=== PATIENT | female | born 1995 | race American Indian/Alaskan Native ===

== ENCOUNTER 2019-05-16 00:31 | Emergency (ER) | payer OTHER ==
[~2019-05-16] VITALS: Ht 167.6 cm; Wt 103.4 kg
[~2019-05-16 00:31] MED LIST: ACETAMINOPHEN325 M1 PO; KEFLEX500 MG PO; LEVAQUIN750 MG PO; NORCO 5-325 TA1 EACH PO; PEPCID20 MG PO; PERCOCET 7.5-31 EACH PO; TYLENOL WITH C1 EACH PO; VIBRAMYCIN100 MG PO; ZOFRAN ODT4 MG SL
--- OUTSIDE RECORDS SUMMARY | 2019-05-16 00:34 | XMS ---
PreManage Notification: AL BREWER Security Delicatessen Manager Events No recent Security Events currently on file CRITERIA MET - Group Notification CARE PROVIDERS There are no care providers on record at this time. Zev has no Care Guidelines for this patient. Barbi VISIT COUNT (12 MO.) 1 AKIRA Monroy TOTAL 1 NOTE: Visits indicate total known visits. ED/UCC VISIT TRACKING (12 MO.) 05/16/2019 00:32 AKIRA King [place] TYPE: Emergency COMPLAINT: - VOMITING, ABD PAIN INPATIENT VISIT TRACKING (12 MO.) No inpatient visits to display in this time frame [email or web address]
[2019-05-16] MEDS ORDERED: VENTOLIN HFA18 GM INH (00:55)
[2019-05-16] MEDS ORDERED: ZOFRAN4 MG PO (02:04)
== END 2019-05-16 02:15 | disposition home or self-care (01) ==
LOC: ED 00:31
DX: K52.9 Noninfective gastroenteritis and colitis, unspecified (principal); Z90.49 Acquired absence of other specified parts of digestive tract
CPT/HCPCS: 80053; 81001; 83690; 84703; 85025; 96361; 96374; 99284-25; J2405; J7030

== ENCOUNTER 2020-04-05 20:34 | Emergency (ER) | payer OTHER ==
[~2020-04-05] VITALS: Ht 167.6 cm; Wt 95.2 kg
[~2020-04-05 20:34] MED LIST changes: +VENTOLIN HFA18 GM INH; +ZOFRAN4 MG PO
--- OUTSIDE RECORDS SUMMARY | 2020-04-05 20:38 | XMS ---
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 EDuane VISIT COUNT (12 MO.) 2 AKIRA Monroy TOTAL 2 NOTE: Visits indicate total known visits. ED/UCC VISIT TRACKING (12 MO.) 04/05/2020 20:35 AKIRA King [place] TYPE: Emergency COMPLAINT: - VOMITING 05/16/2019 00:32 AKIRA King [place] TYPE: Emergency COMPLAINT: - VOMITING, ABD PAIN DIAGNOSES: - Nausea with vomiting, unspecified - Noninfective gastroenteritis and colitis, unspecified - Acquired absence of other specified parts of digestive tract INPATIENT VISIT TRACKING (12 MO.) No inpatient visits to display in this time frame [email or web address]
== END 2020-04-06 00:15 | disposition home or self-care (01) ==
LOC: ED 20:34
DX: O21.9 Vomiting of pregnancy, unspecified (principal); Z3A.01 Less than 8 weeks gestation of pregnancy
CPT/HCPCS: 80053; 81001; 83735; 84702; 85025; 86900; 86901; 96361; 96374; 99284-25; J2405; J7030; J7121

== ENCOUNTER 2020-11-08 09:11 | Inpatient (IN) | payer OTHER ==
[~2020-11-08] VITALS: Ht 162.6 cm; Wt 115.2 kg
--- NOTE | 2020-11-08 13:15 | NUR ---
RT COLLECTED COVID 19 SWAB WITH NO COMPLICATIONS. RT USED THE CEPHEID RAPID TEST THROUGH [facility] PER DR REQUEST AT THIS TIME.
--- NOTE | 2020-11-08 17:50 | PR ---
[facility] [address], [place] [address] Signed Progress Notes IP Datetime Report Generated by CPN: 11/08/2020 17:50 PROGRESS NOTES: [id number] Impression: Normal Progression of Labor Plan: Continue Present Management; Anticipate Vaginal Delivery VITAL SIGNS: [id number] Vital Signs: Reviewed; Within Normal Limits EXAM: [id number] Dilatation: 6.0 Effacement: 90 Station: -2 Contractions: irregular MEMBRANES: [id number] Pooling: Negative Nitrazine: Positive Amniotic Fluid Color: Clear Comments: 25 yo at 39 6/7 weeks gestation PROM @ 0400 At time of admission no change since check in office. However, after IV started and labs collected, she made change to 4.5cm and has continued to progress without starting pitocin or other interventions. FETUS A: [id number] FHR Baseline: 135 Variability: Moderate 6-25bpm Accelerations: 15X15 Decelerations: Early FHR Category: Category I Presentation: Vertex Comments on Fetus A: No evidence of acidemia FETUS B: [id number] Signing Physician: Keila Robertson DO Copies: ~ *Electronically Signed* 11/08/20 5927 KEILA ROBERTSON DO PATIENT NAME: AL BREWER PROGRESS NOTE DATE OF : [birth year] PHYSICIAN: KEILA ROBERTSON #: [id number] REPORT IS CONFIDENTIAL AND NOT TO BE RELEASED WITHOUT AUTHORIZATION
--- NOTE | 2020-11-08 22:54 | PR ---
[facility] [address] [facility] [place], [place] [address] Signed Progress Notes IP Datetime Report Generated by CPN: 11/08/2020 22:54 PROGRESS NOTES: [id number] Impression: Normal Progression of Labor Plan: Continue Present Management; Anticipate Vaginal Delivery VITAL SIGNS: [id number] Vital Signs: Reviewed; Within Normal Limits EXAM: [id number] Dilatation: 9.5 Effacement: 100 Station: 0 Contractions: irregular MEMBRANES: [id number] Pooling: Negative Nitrazine: Positive Amniotic Fluid Color: Clear Comments: Anterior lip, right side. Decelerations resolved with repositioning to right lateral. Comfortable with epidural, feeling rectal pressure with contractions. FETUS A: [id number] FHR Baseline: 135 Variability: Moderate 6-25bpm Accelerations: 15X15 Decelerations: Early FHR Category: Category I Presentation: Vertex Comments on Fetus A: No evidence of acidemia FETUS B: [id number] Signing Physician: Keila Robertson DO Copies: ~ *Electronically Signed* 11/08/20 2253 KEILA ROBERTSON DO PATIENT NAME: AL BREWER PROGRESS NOTE DATE OF : [birth year] PHYSICIAN: KEILA ROBERTSON DO RPT #: [id number] REPORT IS CONFIDENTIAL AND NOT TO BE RELEASED WITHOUT AUTHORIZATION
== END 2020-11-10 13:35 | disposition home or self-care (01) | DRG 806 ==
LOC: FBCO 09:11 → FBC 12:50
PROVIDERS: ADMIT Obstetrics & Gynecology; ATTEND Obstetrics & Gynecology
PROC: 00HU33Z Insertion of Infusion Device into Spinal Canal, Percutaneous Approach (ICD-10-PCS; 2020-11-08)
PROC: 3E0R3BZ Introduction of Anesthetic Agent into Spinal Canal, Percutaneous Approach (ICD-10-PCS; 2020-11-08)
PROC: 10E0XZZ Delivery of Products of Conception, External Approach (ICD-10-PCS; principal; 2020-11-09)
PROC: 0KQM0ZZ Repair Perineum Muscle, Open Approach (ICD-10-PCS; 2020-11-09)
DX: O42.92 Full-term premature rupture of membranes, unspecified as to length of time between rupture and onset of labor (principal); O99.324 Drug use complicating childbirth; Z37.0 Single live birth; Z3A.39 39 weeks gestation of pregnancy; O99.214 Obesity complicating childbirth; E66.9 Obesity, unspecified; O76 Abnormality in fetal heart rate and rhythm complicating labor and delivery; O69.81X0 Labor and delivery complicated by cord around neck, without compression, not applicable or unspecified; O99.62 Diseases of the digestive system complicating childbirth; K21.9 Gastro-esophageal reflux disease without esophagitis; F12.90 Cannabis use, unspecified, uncomplicated; O99.344 Other mental disorders complicating childbirth; F41.9 Anxiety disorder, unspecified; O70.1 Second degree perineal laceration during delivery; Z86.16 Personal history of COVID-19; Z79.899 Other long term (current) drug therapy; Z87.891 Personal history of nicotine dependence
CPT/HCPCS: 01960; 59025; 82565; 82570; 84112; 84156; 84450; 84520; 84550; 85027; 99213; C9803; J2590; J2795; J3010; J7121; U0003

== ENCOUNTER 2022-06-18 16:18 | Emergency (ER) | payer OTHER ==
[~2022-06-18] VITALS: Ht 165.1 cm; Wt 111.1 kg
[~2022-06-18 16:18] MED LIST changes: +ACETAMINOPHEN500 MG PO; +ALLEGRA ALLERG180 MG PO; +COLACE100 MG PO; +HYDROCODON-ACE1 EA10 PO; +IBUPROFEN600 MG PO; +IMMUNERX CAPS250 MCG PO; +NORA-BE0.35 MG PO; +PRENATAL FORMU1 EAC2 PO
--- OUTSIDE RECORDS SUMMARY | 2022-06-18 16:26 | XMS ---
PreManage Notification: AL BREWER Security Telecom Sales Consultant Events No recent Security Events currently on file CRITERIA MET - Group Notification CARE PROVIDERS KATY GALAN Physician Business Systems Lead: Medical 05/16/2019-[facility] PHONE: Unknown [facility] Case Management 04/06/2020-[facility] PHONE: [phone] Zev has no Care Guidelines for this patient. Care History Medical/Surgical 01/11/2021 [facility] - PATIENT IS [employer] ELIGIBLE, \T\middot;\T\nbsp; PLEASE REFER PATIENT TO [facility] FOR NON EMERGENT MEDICAL NEEDS. \T\middot;\T\nbsp; [facility] CAN SEE PATIENTS SAME DAY FOR APTS IF PATIENT CALLS FIRST THING IN THE MORNING. E.D. VISIT COUNT (12 MO.) 1 AKIRA Monroy TOTAL 1 NOTE: Visits indicate total known visits. ED/UCC VISIT TRACKING (12 MO.) 06/18/2022 16:19 AKIRA King [place] TYPE: Emergency COMPLAINT: - BACK/HIP PAIN INPATIENT VISIT TRACKING (12 MO.) No inpatient visits to display in this time frame [email or web address]
== END 2022-06-18 19:36 | disposition home or self-care (01) ==
LOC: ED 16:18
DX: M54.50 Low back pain, unspecified (principal); E66.9 Obesity, unspecified; Z87.891 Personal history of nicotine dependence
CPT/HCPCS: 81001; 84703; 96372; 99283; A9270; J1885

== ENCOUNTER 2022-08-06 16:36 | Emergency (ER) | payer OTHER ==
[~2022-08-06] VITALS: Ht 165.1 cm; Wt 108.6 kg
--- OUTSIDE RECORDS SUMMARY | 2022-08-06 16:44 | XMS ---
PreManage Notification: AL BREWER Security General Forecaster Events No recent Security Events currently on file CRITERIA MET - Group Notification CARE PROVIDERS KATY GALAN Physician Statistical Developer: Medical 05/16/2019-[facility] PHONE: Unknown [facility] Case Management 04/06/2020-[facility] PHONE: [phone] Zev has no Care Guidelines for this patient. Care History Medical/Surgical 01/11/2021 [facility] - PATIENT IS [facility] ELIGIBLE, \T\middot;\T\nbsp; PLEASE REFER PATIENT TO [facility] FOR NON EMERGENT MEDICAL NEEDS. \T\middot;\T\nbsp; [facility] CAN SEE PATIENTS SAME DAY FOR APTS IF PATIENT CALLS FIRST THING IN THE MORNING. E.D. VISIT COUNT (12 MO.) 2 AKIRA Monroy TOTAL 2 NOTE: Visits indicate total known visits. ED/UCC VISIT TRACKING (12 MO.) 08/06/2022 16:37 AKIRA King [place] TYPE: Emergency COMPLAINT: - COLD SYMPTOMS 06/18/2022 16:19 AKIRA King [place] TYPE: Emergency COMPLAINT: - BACK/HIP PAIN DIAGNOSES: - Obesity, unspecified - Personal history of nicotine dependence - Low back pain, unspecified INPATIENT VISIT TRACKING (12 MO.) No inpatient visits to display in this time frame [email or web address]
[2022-08-06] MEDS ORDERED: PROBIOTIC1 EAC1 PO (18:40)
== END 2022-08-06 19:30 | disposition home or self-care (01) ==
LOC: ED 16:36
DX: J11.1 Influenza due to unidentified influenza virus with other respiratory manifestations (principal); Z87.891 Personal history of nicotine dependence
CPT/HCPCS: 99283; A9270

== ENCOUNTER 2023-10-20 16:58 | Emergency (ER) | payer OTHER ==
[~2023-10-20] VITALS: Ht 165.1 cm; Wt 104.4 kg
[~2023-10-20 16:58] MED LIST changes: +PROBIOTIC1 EAC1 PO
[2023-10-20] MEDS ORDERED: M-NATAL PLUS T1 EACH PO (17:28)
[2023-10-20] MEDS ORDERED: VITAMIN B-650 MG PO (17:30)
[2023-10-20] MEDS ORDERED: VITAMIN D325 MC2 PO (17:31)
[2023-10-20 18:24] LABS: BASOPHILS 0.4 % (0-2); BILIRUBIN, URINE NEGATIVE (negative); BLOOD/HGB, URINE NEGATIVE (Negative); EOSINOPHILS 1.4 % (0-6); KETONE, URINE SMALL (Negative); LEUK ESTERASE, URINE NEGATIVE (negative); LYMPHOCYTES 7.9 % (24-44); MCH 30.6 (27-36); MCHC 34.4 g/dl (30-36); MONOCYTES 9.6 % (0-12); NEUTROPHILS 80.7 % (39-80); NITRITE, URINE NEGATIVE (negative); PLATELET COUNT 209 K/uL (140-440); RBC 4.27 M/ul (4.3-5.7); RDW 12.7 (10.5-15.0)
[2023-10-20 18:39] LABS: ALBUMIN 3.1 g/dL (3.4-5.0); ALBUMIN/GLOBULIN RATIO 0.72 (1.1-2.4); ANION GAP 17.5 (7-21); BILIRUBIN, TOTAL 0.3 ng/dL (0.2-1.0); BUN/CREATININE RATIO 7.35 (6.0-28.6); CALCIUM 8.7 mg/dL (8.5-10.1); CREATININE, SERUM 0.68 mg/dL (0.55-1.02); POTASSIUM 3.5 mmol/L (3.5-5.1); PROTEIN, TOTAL 7.4 g/dL (6.4-8.2)
[2023-10-20 19:48] VITALS: BP 126/76
== END 2023-10-20 19:44 | disposition home or self-care (01) ==
LOC: ED 16:58
DX: O26.892 Other specified pregnancy related conditions, second trimester (principal); R10.11 Right upper quadrant pain; Z3A.16 16 weeks gestation of pregnancy; Z79.899 Other long term (current) drug therapy; Z90.49 Acquired absence of other specified parts of digestive tract
CPT/HCPCS: 36415; 76705; 76815; 80053; 81003; 83690; 84703; 85025; 99284-25

== ENCOUNTER 2024-03-05 02:44 | Emergency (ER) | payer OTHER ==
[~2024-03-05] VITALS: Ht 165.1 cm; Wt 112.0 kg
--- NOTE | ~2024-03-05 | EKG ---
[facility] [address] [facility] [place], [place] [address] Draft EK completed, results pending confirmation PATIENT NAME: AL BREWER GIOVANNA Electrocardiogram DATE OF : [birth year] PHYSICIAN: PRELIMINARY REPORT #: [id number] REPORT IS CONFIDENTIAL AND NOT TO BE RELEASED WITHOUT AUTHORIZATION
[~2024-03-05 02:44] MED LIST changes: +M-NATAL PLUS T1 EACH PO; +VITAMIN B-650 MG PO; +VITAMIN D325 MC2 PO
[2024-03-05] MEDS ORDERED: SUCRALFATE 1 GM TAB PO ONE (03:00)
[2024-03-05] MEDS ORDERED: LIDOCAINE & ANTACID 35 ML BTL PO ONE (03:00)
[2024-03-05 03:16] LABS: BASOPHILS 0.3 % (0-2); HEMATOCRIT 32.4 % (35.0-50.0); HEMOGLOBIN 11.4 g/dL (12.0-18.0); LYMPHOCYTES 14.9 % (24-44); MCH 30.9 (27-36); MCHC 35.2 g/dl (30-36); MONOCYTES 6.9 % (0-12); NEUTROPHILS 76.9 % (39-80); PLATELET COUNT 239 K/uL (140-440); RBC 3.68 M/ul (4.3-5.7); RDW 12.9 (10.5-15.0)
[2024-03-05] MEDS ORDERED: PRENATAL ESSEN1 EAC1 PO (03:27)
[2024-03-05 03:32] LABS: ALBUMIN 2.7 g/dL (3.4-5.0); ALBUMIN/GLOBULIN RATIO 0.64 (1.1-2.4); ALKALINE PHOSPHATASE 127 U/L (46-116); ALT (SGPT) 17 U/L (14-59); ANION GAP 13.4 (7-21); AST (SGOT) 12 U/L (15-37); BILIRUBIN, TOTAL 0.2 ng/dL (0.2-1.0); BUN/CREATININE RATIO 11.49 (6.0-28.6); CALCIUM 8.4 mg/dL (8.5-10.1); CARBON DIOXIDE 23 mmol/L (21-32); CHLORIDE 103 mmol/L (98-107); CREATININE, SERUM 0.87 mg/dL (0.55-1.02); GLOMERULAR FILTRATION RATE,EST 94 mL/min (>60); MAGNESIUM 1.5 mg/dL (1.8-2.4); POTASSIUM 3.4 mmol/L (3.5-5.1); PROTEIN, TOTAL 6.9 g/dL (6.4-8.2); UREA NITROGEN 10 mg/dL (7-18)
[2024-03-05] MEDS ORDERED: PEPCID20 MG PO (03:42)
[2024-03-05] MEDS ORDERED: CARAFATE1 GM PO (03:42)
[2024-03-05 03:55] VITALS: BP 138/85
== END 2024-03-05 03:57 | disposition home or self-care (01) ==
LOC: ED 02:44
PROVIDERS: Family Medicine
DX: O99.613 Diseases of the digestive system complicating pregnancy, third trimester (principal); K29.70 Gastritis, unspecified, without bleeding; Z3A.35 35 weeks gestation of pregnancy; Z87.891 Personal history of nicotine dependence
CPT/HCPCS: 36415; 80053; 83735; 84484; 85025; 93005; 93010; 99285

== ENCOUNTER 2024-04-14 07:57 | Inpatient (IN) | payer OTHER ==
[~2024-04-14] VITALS: Ht 152.4 cm; Wt 117.9 kg
[~2024-04-14 07:57] MED LIST changes: +CARAFATE1 GM PO; +PRENATAL ESSEN1 EAC1 PO
[2024-04-15] MEDS ORDERED: LACTATED RINGER'S 1,000 ML IV SCH
[2024-04-15] MEDS ORDERED: miSOPROStoL 25 MCG TAB PV SCH
[2024-04-15 01:25] VITALS: BP 131/72
[2024-04-15 02:44] LABS: HEMATOCRIT 34.6 % (35.0-50.0); HEMOGLOBIN 11.8 g/dL (12.0-18.0); MCH 30.4 (27-36); MCHC 34.2 g/dl (30-36); MCV 88.9 fl (81-99); RBC 3.89 M/ul (4.3-5.7); RDW 12.9 (10.5-15.0)
[2024-04-15] MEDS ORDERED: OXYTOCIN/DEXTROSE 5% 20 UNITS/100 ML BAG IV SCH (02:45)
[2024-04-15] MEDS ORDERED: ondansetron HCL 4 MG/2 ML VIAL IV PRN (02:45)
[2024-04-15 03:14] LABS: ABO O; ANTIBODY SCREEN NEGATIVE; RH POSITIVE
[2024-04-15 03:21] LABS: AMPHETAMINES, URINE NEGATIVE (NEGATIVE); BARBITURATES, URINE NEGATIVE (NEGATIVE); BENZODIAZEPINE, URINE NEGATIVE (NEGATIVE); BUPRENORPHINE, URINE NEGATIVE (NEGATIVE); CANNABINOID, URINE POSITIVE (NEGATIVE); COCAINE, URINE NEGATIVE (NEGATIVE); ECSTASY, URINE NEGATIVE (NEGATIVE); FENTANYL, URINE NEGATIVE (NEGATIVE); METHADONE, URINE NEGATIVE (NEGATIVE); OPIATES, URINE NEGATIVE (NEGATIVE); OXYCODONE, URINE NEGATIVE (NEGATIVE); PHENCYCLIDINE, URINE NEGATIVE (NEGATIVE)
--- NOTE | 2024-04-15 08:28 | PR ---
[facility] [address] [facility] [place] [address] Signed Progress Notes IP Datetime Report Generated by CPN: 04/15/2024 08:28 PROGRESS NOTES: [id number] Impression: Normal Progression of Labor Procedures: Artificial ROM; Scalp Electrode; Sterile Vag Exam Plan: Continue Present Management VITAL SIGNS: [id number] EXAM: [id number] Dilatation: 4.0 Effacement: 70 Station: -3 Contractions: q 1 to 3 min MEMBRANES: [id number] Comments: Progressing well. Will continue. FETUS A: [id number] Variability: Moderate 6-25bpm Decelerations: Late FHR Category: Category II FETUS B: [id number] Signing Physician: Nayeli Hoyt MD Copies: ~ *Electronically Signed* 04/15/24827 NAYELI HOYT MD PATIENT NAME: AL BREWER PROGRESS NOTE DATE OF : [birth year] PHYSICIAN: NAYELI HOYT MD RPT #: [id number] REPORT IS CONFIDENTIAL AND NOT TO BE RELEASED WITHOUT AUTHORIZATION
[2024-04-15] MEDS ORDERED: ROPIVACAINE 0.2% 200 ML BAG ONE (08:50)
--- NOTE | 2024-04-15 09:18 | PR ---
[facility] [address] [facility] [place], [place] [address] Signed Progress Notes IP Datetime Report Generated by CPN: 04/15/2024 09:18 PROGRESS NOTES: [id number] Impression: Normal Progression of Labor Procedures: Sterile Vag Exam Plan: Continue Present Management VITAL SIGNS: [id number] EXAM: [id number] Dilatation: 6.0 Effacement: 70 Station: -3 Contractions: q 2 to 3 min MEMBRANES: [id number] Comments: Some progress. Some relief from epidural so far. Will try position changes for variables. May need amnioinfusion if no improvement. FETUS A: [id number] Variability: Minimal - >Undetectable to <=5bpm Decelerations: Variable FHR Category: Category II FETUS B: [id number] Signing Physician: Nayeli Hoyt MD Copies: ~ *Electronically Signed* 04/15/24917 NAYELI HOYT MD PATIENT NAME: AL BREWER PROGRESS NOTE DATE OF : [birth year] PHYSICIAN: NAYELI HOYT MD RPT #: [id number] REPORT IS CONFIDENTIAL AND NOT TO BE RELEASED WITHOUT AUTHORIZATION
--- NOTE | 2024-04-15 10:00 | PR ---
[facility] [address] [place] [address] Signed Progress Notes IP Datetime Report Generated by CAMILO: 04/15/2024 10:00 PROGRESS NOTES: [id number] Impression: Normal Progression of Labor Procedures: Sterile Speculum Exam Plan: Anesthesia Consult VITAL SIGNS: [id number] EXAM: [id number] Dilatation: 9.0 Effacement: 90 Station: -2 Contractions: q 2 min MEMBRANES: [id number] Comments: Still uncomfortable but progressing. Anesthesia will reassess. Mod variability present. Will continue. FETUS A: [id number] Variability: Moderate 6-25bpm Decelerations: Variable FHR Category: Category II FETUS B: [id number] Signing Physician: Nayeli Hoyt MD Copies: ~ *Electronically Signed* 04/15/24 1000 NAYELI HOYT MD PATIENT NAME: AL BREWER PROGRESS NOTE DATE OF : [birth year] PHYSICIAN: NAYELI HOYT MD RPT #: [id number] REPORT IS CONFIDENTIAL AND NOT TO BE RELEASED WITHOUT AUTHORIZATION
[2024-04-15] MEDS ORDERED: dexmedeTOMIDine HCl 200 MCG/2 ML VIAL ONE (10:06)
[2024-04-15] MEDS ORDERED: OXYTOCIN/0.9 % SODIUM CHLORIDE 500 ML IV SCH (11:30)
[2024-04-15] MEDS ORDERED: ACETAMINOPHEN 325 MG TAB PO PRN (11:30)
[2024-04-15] MEDS ORDERED: BENZOCAINE 60 ML AEROSOL TOP PRN (11:30)
[2024-04-15] MEDS ORDERED: WITCH HAZEL/GLYCERIN 1 EA PAD TOP PRN (11:30)
[2024-04-15] MEDS ORDERED: HYDROCORTISONE ACETATE 25 MG SUPP PR PRN (11:30)
[2024-04-15] MEDS ORDERED: IBUPROFEN 600 MG TAB PO PRN (11:30)
[2024-04-15] MEDS ORDERED: CALCIUM CARBONATE 500 MG CHEW PO PRN ×2 (11:30)
[2024-04-15] MEDS ORDERED: MAGNESIUM HYDROXIDE 30 ML UDC PO PRN (11:30)
[2024-04-15] MEDS ORDERED: MAGNESIUM HYDROXIDE/AL HYDROX 30 ML CUP PO PRN ×2 (11:30)
[2024-04-15] MEDS ORDERED: LIDOCAINE 2% VISCOUS 6 ML SYR TOP ONE ×2 (11:30)
[2024-04-15] MEDS ORDERED: HYDROCODONE/ACETA 5/325 TAB PO PRN (11:30)
[2024-04-15] MEDS ORDERED: SENNOSIDES/DOCUSATE 1 EA TAB PO SCH (21:00)
[2024-04-16 05:27] LABS: HEMATOCRIT 32.9 % (35.0-50.0); HEMOGLOBIN 11.3 g/dL (12.0-18.0); MCH 30.1 (27-36); MCHC 34.2 g/dl (30-36); RBC 3.74 M/ul (4.3-5.7); RDW 13.2 (10.5-15.0)
--- NOTE | 2024-04-16 08:18 | PR ---
[facility] [address] [place] [address] Signed PP Progress Notes Datetime Report Generated by CPN: 04/16/2024 08:18 SUBJECTIVE: [id number] Pain: Within Normal Limits Nausea/Vomiting: Denies Vital Signs: [id number] Vital Signs: Reviewed Notable Details: HTN--not persistently severe Cardiovascular: Not Done Respiratory: Not Done Abdomen/Uterus: Abnormal Lochia: Normal Vulva/Perineum: Not Done Breasts: Not Done CVA Tenderness: Not Done Extremities: Normal Incision: Not Applicable Progress: Normal Exam Comments: Fundus firm, NT @ U-1. H/H 11.3/32.9, WBC 18, Plat 192k IMPRESSION/PLAN/PROCEDURES: [id number] Impression: Normal Progression; Induced Hypertension Other Plans: continue BP observation Procedures: None Progress Notes: Overall doing well but BPs have been higher than usual. I think further observation would be helpful as I am concerned she may be developing preeclampsia. Signing Physician: Nayeli Hoyt MD Copies: ~ *Electronically Signed* 04/16/24817 NAYELI HOYT MD PATIENT NAME: AL BREWER PROGRESS NOTE DATE OF : [birth year] PHYSICIAN: NAYELI HOYT MD RPT #: [id number] REPORT IS CONFIDENTIAL AND NOT TO BE RELEASED WITHOUT AUTHORIZATION
[2024-04-17] MEDS ORDERED: ROPIVACAINE 0.2% 200 ML BAG EPIDURAL SCH (08:15)
[2024-04-17] MEDS ORDERED: LACTATED RINGER'S 500 ML IV PRN (08:15)
[2024-04-17] MEDS ORDERED: ePHEDrine sulfate 5 MG/ML SYRINGE IV PRN (08:15)
[2024-04-17] MEDS ORDERED: LACTATED RINGER'S 2,000 ML IV ONE (08:15)
--- NOTE | 2024-04-17 08:57 | PR ---
[facility] [address] [facility] [place], [place] [address] Signed PP Progress Notes Datetime Report Generated by CAMILO: 04/17/2024 08:57 SUBJECTIVE: [id number] Pain: Within Normal Limits Nausea/Vomiting: Denies Vital Signs: [id number] Vital Signs: Reviewed Notable Details: intermittent HTN Cardiovascular: Not Done Respiratory: Not Done Abdomen/Uterus: Abnormal Lochia: Normal Vulva/Perineum: Not Done Breasts: Not Done CVA Tenderness: Not Done Extremities: Normal Incision: Not Applicable Progress: Normal Exam Comments: Fundus firm, NT @ U-2. IMPRESSION/PLAN/PROCEDURES: [id number] Impression: Normal Progression Other Impression: Intermittent HTN Plan: Discharge Other Plans: continue BP observation Procedures: None Progress Notes: Doing well though concerned about depression. She used sertraline in the past and has a hx of depression pp. She is interested in starting medication. Her BPs remain labile so will recheck on Mon. Signing Physician: Nayeli Hoyt MD Copies: ~ *Electronically Signed* 04/17/24 0857 NAYELI HOYT MD PATIENT NAME: AL BREWER PROGRESS NOTE DATE OF : [birth year] PHYSICIAN: NAYELI HOYT MD RPT #: [id number] REPORT IS CONFIDENTIAL AND NOT TO BE RELEASED WITHOUT AUTHORIZATION
== END 2024-04-17 10:50 | disposition home or self-care (01) | DRG 807 ==
LOC: FBC 04-15 00:37
PROVIDERS: ADMIT Obstetrics & Gynecology; ATTEND Obstetrics & Gynecology
PROC: 10E0XZZ Delivery of Products of Conception, External Approach (ICD-10-PCS; principal; 2024-04-15)
PROC: 0KQM0ZZ Repair Perineum Muscle, Open Approach (ICD-10-PCS; 2024-04-15)
PROC: 3E0R3BZ Introduction of Anesthetic Agent into Spinal Canal, Percutaneous Approach (ICD-10-PCS; 2024-04-15)
PROC: 00HU33Z Insertion of Infusion Device into Spinal Canal, Percutaneous Approach (ICD-10-PCS; 2024-04-15)
PROC: 10907ZC Drainage of Amniotic Fluid, Therapeutic from Products of Conception, Via Natural or Artificial Opening (ICD-10-PCS; 2024-04-15)
DX: O48.0 Post-term pregnancy (principal); Z37.0 Single live birth; O70.1 Second degree perineal laceration during delivery; Z3A.40 40 weeks gestation of pregnancy; O69.81X0 Labor and delivery complicated by cord around neck, without compression, not applicable or unspecified; O13.4 Gestational [pregnancy-induced] hypertension without significant proteinuria, complicating childbirth
CPT/HCPCS: 01960; 36415; 80307; 82803; 85027; 86850; 86900; 86901; A9270; J2405; J2590; J2795

== ENCOUNTER 2024-04-20 21:01 | Emergency (ER) | payer OTHER ==
[~2024-04-20] VITALS: Ht 165.1 cm; Wt 121.2 kg
[2024-04-20] MEDS ORDERED: SERTRALINE HCL50 MG PO (21:23)
[2024-04-20] MEDS ORDERED: ACETAMINOPHEN 500 MG TAB PO ONE (21:45)
[2024-04-20 22:09] LABS: BILIRUBIN, URINE NEGATIVE (negative); BLOOD/HGB, URINE LARGE (Negative); KETONE, URINE NEGATIVE (Negative); LEUK ESTERASE, URINE SMALL (negative); NITRITE, URINE NEGATIVE (negative)
[2024-04-20 22:14] LABS: BASOPHILS 0.7 % (0-2); EOSINOPHILS 1.9 % (0-6); HEMATOCRIT 35.4 % (35.0-50.0); HEMOGLOBIN 12.1 g/dL (12.0-18.0); LYMPHOCYTES 22.7 % (24-44); MCH 30.5 (27-36); MCHC 34.1 g/dl (30-36); MCV 89.5 fl (81-99); MONOCYTES 8.1 % (0-12); NEUTROPHILS 66.6 % (39-80); PLATELET COUNT 224 K/uL (140-440); RBC 3.96 M/ul (4.3-5.7); RDW 13.1 (10.5-15.0)
[2024-04-20 22:26] LABS: BACTERIA, URINE RARE /hpf (negative); CASTS, URINE NONE SEEN \\lpf; COLLECTION TYPE, URINE CLEAN CATCH; CRYSTALS, URINE NONE SEEN (0-1+); EPITHELIAL CELLS, URINE SQUAMOUS 1+ /lpf (0-1+); REFLEX CULTURE, URINE No (No)
[2024-04-20 22:29] LABS: ALBUMIN 2.5 g/dL (3.4-5.0); ALBUMIN/GLOBULIN RATIO 0.66 (1.1-2.4); ANION GAP 12.9 (7-21); BILIRUBIN, TOTAL 0.1 ng/dL (0.2-1.0); BUN/CREATININE RATIO 11.65 (6.0-28.6); CALCIUM 9.4 mg/dL (8.5-10.1); CREATININE, SERUM 1.03 mg/dL (0.55-1.02); POTASSIUM 3.9 mmol/L (3.5-5.1); PROTEIN, TOTAL 6.3 g/dL (6.4-8.2)
[2024-04-20 22:45] LABS: INFLUENZA B NAA NEGATIVE (NEGATIVE); RESPIRATORY SYNCYTIAL VIR NAA NEGATIVE (NEGATIVE)
[2024-04-20] MEDS ORDERED: MACROBID 100 M100 MG PO (22:49)
[2024-04-20] MEDS ORDERED: NITROFURANTOIN MONOHYD MACROCR 100 MG CAP PO ONE (23:00)
[2024-04-20 23:08] VITALS: BP 126/86
== END 2024-04-20 23:08 | disposition home or self-care (01) ==
LOC: ED 21:01
PROVIDERS: Internal Medicine
DX: O86.20 Urinary tract infection following delivery, unspecified (principal); N39.0 Urinary tract infection, site not specified; Z87.891 Personal history of nicotine dependence; Z88.0 Allergy status to penicillin; Z79.899 Other long term (current) drug therapy
CPT/HCPCS: 36415; 80053; 81001; 85025; 86140; 87088; 87502; 99284; A9270; U0002

== ENCOUNTER 2025-09-03 00:48 | Emergency (ER) | payer OTHER ==
[~2025-09-03] VITALS: Ht 165.1 cm; Wt 117.0 kg
[~2025-09-03 00:48] MED LIST changes: +MACROBID 100 M100 MG PO; +SERTRALINE HCL50 MG PO
[2025-09-03] MEDS ORDERED: MORPHINE SULFATE 4 MG/ML VIAL IV ONE (01:00)
[2025-09-03] MEDS ORDERED: SODIUM CHLORIDE 0.9% 1,000 ML IV ONE (01:00)
[2025-09-03 01:05] LABS: BASOPHILS 0.4 % (0.1-1.2); EOSINOPHILS 1.5 % (0.7-5.8); LYMPHOCYTES 20.2 % (19.3-51.7); MCH 30.4 PG (25.6-32.2); MCHC 34.6 g/dL (32.2-35.5); MCV 87.8 fL (79.4-94.8); MONOCYTES 6.6 % (4.7-12.5); NEUTROPHILS 70.9 % (34.0-71.1); RBC 5.26 M/uL (3.93-5.22)
[2025-09-03 01:28] LABS: ALT (SGPT) 30.0 U/L (14-59); AST (SGOT) 14.0 U/L (15-37); GLOMERULAR FILTRATION RATE,EST 86.0 mL/min (>60); PROTEIN, TOTAL 8.5 g/dL (6.4-8.2); UREA NITROGEN 12.0 mg/dL (7-18)
[2025-09-03 02:29] LABS: BLOOD/HGB, URINE SMALL (Negative); KETONE, URINE NEGATIVE (Negative); LEUK ESTERASE, URINE NEGATIVE (negative); NITRITE, URINE NEGATIVE (negative)
[2025-09-03 02:35] LABS: EPITHELIAL CELLS, URINE SQUAMOUS 1+ /lpf (0-1+)
[2025-09-03 02:36] LABS: BACTERIA, URINE RARE /hpf (negative); CASTS, URINE NONE SEEN \\lpf; CRYSTALS, URINE NONE SEEN (0-1+); REFLEX CULTURE, URINE No (No)
[2025-09-03] MEDS ORDERED: CYCLOBENZAPRINE10 MG PO (02:44)
[2025-09-03] MEDS ORDERED: LOMOTIL TABLET1 EACH PO (02:44)
[2025-09-03] MEDS ORDERED: ONDANSETRON ODT8 MG PO (02:44)
[2025-09-03] MEDS ORDERED: ONDANSETRON 4 MG HOME.PACK SL ONE (03:00)
[2025-09-03] MEDS ORDERED: CYCLOBENZAPRINE HCL 10 MG HOME.PACK PO ONE (03:00)
[2025-09-03 03:08] VITALS: BP 137/73
== END 2025-09-03 03:11 | disposition home or self-care (01) ==
LOC: ED 00:48
PROVIDERS: Family Medicine
DX: K52.9 Noninfective gastroenteritis and colitis, unspecified (principal); Z87.891 Personal history of nicotine dependence; Z88.8 Allergy status to other drugs, medicaments and biological substances
CPT/HCPCS: 36415; 74177; 80053; 81001; 83690; 84703; 85025; 96361; 96374; 96375; 99284-25; A9270; J2270; J2405; J7030; Q9967